=== PATIENT | male | born 1935 | race Caucasian/White ===

== ENCOUNTER 2020-11-20 13:23 | Emergency (ER) | payer MEDICARE, OTHER ==
[~2020-11-20 13:23] MED LIST: NEOSPORIN OINT15 GM TOP; PERCOCET 5-3251 EACH PO
[2020-11-20 14:33] LABS: BUN/CREATININE RATIO 23 (0-10)
[2020-11-20 15:35] LABS: RED BLOOD COUNT 4.46 M/UL (4.20-5.50); WHITE BLOOD COUNT 8.5 K/UL (4.5-11.0)
== END 2020-11-20 15:46 | disposition short-term general hospital (02) ==
LOC: ER1 13:23
PROVIDERS: Emergency Medicine
DX: S27.0XXA Traumatic pneumothorax, initial encounter (principal); R10.811 Right upper quadrant abdominal tenderness; F17.200 Nicotine dependence, unspecified, uncomplicated; Z20.822 Contact with and (suspected) exposure to COVID-19; W19.XXXA Unspecified fall, initial encounter
CPT/HCPCS: 32551; 70450; 71045; 71260; 72125; 72128; 72131; 72170; 80053; 83605; 85025; 85610; 85730; 86850; 86900; 86901; 90715; 93005; 99284; 99285; G0480; J2060; J3010; Q9967; U0002

== ENCOUNTER → 2021-11-09 | Outpatient (CLI) | payer MEDICARE, OTHER ==
[~2021-11-09] MED LIST changes: +AMOXICILLIN875 MG PO
== END ==
LOC: KOH-I 08:54
DX: S89.91XA Unspecified injury of right lower leg, initial encounter (principal); X58.XXXA Exposure to other specified factors, initial encounter
CPT/HCPCS: 73590

== ENCOUNTER 2021-11-15 00:41 | Emergency (ER) | payer OTHER ==
[~2021-11-15 00:41] MED LIST changes: -AMOXICILLIN875 MG PO
[2021-11-15] MEDS ORDERED: AMOXICILLIN875 MG PO (03:48)
== END 2021-11-15 03:55 | disposition home or self-care (01) ==
LOC: ER1 00:41
DX: S01.112A Laceration without foreign body of left eyelid and periocular area, initial encounter (principal); S41.012A Laceration without foreign body of left shoulder, initial encounter; S09.90XA Unspecified injury of head, initial encounter; J32.0 Chronic maxillary sinusitis; Z23 Encounter for immunization; F17.200 Nicotine dependence, unspecified, uncomplicated; Z88.2 Allergy status to sulfonamides; W22.8XXA Striking against or struck by other objects, initial encounter
CPT/HCPCS: 12013; 70450; 72125; 73030; 73060; 90471; 90715; 99284

== ENCOUNTER 2022-02-13 11:18 | Emergency (ER) | payer OTHER ==
[~2022-02-13 11:18] MED LIST changes: +AMOXICILLIN875 MG PO
== END 2022-02-13 15:25 | disposition home or self-care (01) ==
LOC: ER1 11:18
DX: M54.50 Low back pain, unspecified (principal); M25.551 Pain in right hip; F17.210 Nicotine dependence, cigarettes, uncomplicated; Z88.2 Allergy status to sulfonamides; Z88.6 Allergy status to analgesic agent
CPT/HCPCS: 72131; 72192; 99283